=== PATIENT | male | born 1975 | race Caucasian/White ===

== ENCOUNTER 2020-10-05 11:54 | Outpatient (CLI) | payer BC, SELFPAY ==
--- NOTE | ~2020-10-05 | XR_ITS ---
XR knee RT 3V 10/05/2020 12:35 Indication: Right knee pain Procedure: 3 views right knee Comparison: No prior studies for comparison. Findings: There is mild osteoarthritis of the right knee. No fracture, subluxation or dislocation. Th ere is anatomic alignment. No significant joint effusion. No foreign bodies. Impression: 1: Mild osteoarthritis of the right knee. Reviewed, dictated and finalized at location A. Impression: 1: Mild osteoarthritis of the right knee.
== END 2020-10-05 11:55 | disposition home or self-care (01) ==
PROVIDERS: PCP Family Medicine; Visit Provider Nurse Practitioner Family
DX: M17.11 Unilateral primary osteoarthritis, right knee (principal)
CPT/HCPCS: 73562

== ENCOUNTER 2020-10-21 10:24 | Outpatient (CLI) | payer BC, SELFPAY ==
--- NOTE | ~2020-10-21 | MR_ITS ---
EXAMINATION: MR knee RT wo con DATE: 10/21/2020 11:54 INDICATION: Right knee pain TECHNIQUE: Magnetic resonance imaging (MRI) of the right knee was performed without intravenous contr ast. Sequences included coronal PD-weighted FSE, coronal PD-weighted FS FSE, sagittal T2-weighted FS E, sagittal PD-weighted FS FSE and axial PD weighted fat saturated FSE. COMPARISON: None. FINDINGS: Medial compartment: Full-thickness radial tear/avulsion of posterior root of the medial meniscus. There is secondary mild medial extrusion of the meniscal body. Deep chondral ulceration with underlying subarticular edema a t the anteromedial quadrant of the medial tibial plateau and at the anterior weightbearing medial fem oral condyle. Scattered less severe partial thickness chondral ulceration and deep fissuring at the m edial tibial plateau and central weightbearing medial femoral condyle. Lateral compartment: Lateral meniscus is normal. Articular cartilage is otherwise normal. Patellofemoral compartment: Chondral fissuring along the patella involving less than 50% the cartilage thickness at the lateral p atellar facet and with scattered deeper fissuring at the patellar apical ridge and medial facet with mild underlying subarticular edema. Additional deep fissuring along the inferior aspect of the medial trochlea. Ligaments and tendons: Anterior and posterior cruciate ligaments are normal. The medial collateral ligament and fibular julio ateral ligament complex are normal. The extensor mechanism is normal. The visualized medial and later al hamstring tendons as well as the iliotibial band are normal. Fluid: Small glenohumeral joint effusion with mild synovitis at the suprapatellar pouch. No loose osteochond ral bodies identified. Large bilobed ganglion cyst at the posteromedial aspect of the knee with the s uperficial classic Spring's cyst component measuring 4.3 cm craniocaudally and 3.3 x 1.7 cm in maximal transaxial dimensions. The larger multiloculated deeper component extends 6.3 cm cephalad along the deep margin of the semimembranosus muscle and tendon and measuring 2.8 x 1.5 cm in maximal transaxial dimensions. Osseous/other: Small intraosseous ganglion cyst at the proximal head of the fibula underlying the footplate of the a nterior superior tibiofibular ligament. No fracture or pathologic marrow replacing process. IMPRESSION: 1. Full-thickness radial tear/avulsion at the posterior root of the medial meniscus. 2. Mild to moderate medial compartment and mild patellofemoral compartment osteoarthritis, both with regions of high-grade chondromalacia. 3. Likely reactive small right knee joint effusion with large bilobed ganglion cyst/Spring's cyst at t he popliteal fossa. Reviewed, dictated and finalized at location B. IMPRESSION: 1. Full-thickness radial tear/avulsion at the posterior root of the medial meni scus. 2. Mild to moderate medial compartment and mild patellofemoral compartment oste oarthritis, both with regions of high-grade chondromalacia. 3. Likely reactive small right knee joint effusion with large bilobed ganglion cyst/Spring's cyst at the popliteal fossa.
== END 2020-10-21 10:25 | disposition home or self-care (01) ==
PROVIDERS: PCP Family Medicine; Visit Provider Nurse Practitioner Family
DX: M17.11 Unilateral primary osteoarthritis, right knee (principal); S83.241A Other tear of medial meniscus, current injury, right knee, initial encounter; X58.XXXA Exposure to other specified factors, initial encounter
CPT/HCPCS: 73721